=== PATIENT | male | born 1960 | race Caucasian/White ===

== ENCOUNTER 2018-05-24 10:49 | Emergency (ER) | payer BC ==
[2018-05-24 10:55] VITALS: BP 183/72; PULSE 88; RESP 16; TEMP 98.4
--- NOTE | 2018-05-24 11:54 | ED ---
Fall HPI - General Chief Complaint: Fall Stated Complaint: fall, knee/back pain Time Seen by Provider: 05/24/18 11:01 Source: patient Mode of arrival: wheelchair - History of Present Illness Initial Comments: Patient is a 57-year-old male who presents with a chief complaint of right knee pain and lower back pain after a fall yesterday. Patient states that he had a mechanical fall when he slipped on ice yesterday. He states that when he fell his lower leg was angulated laterally and that he heard a pop and immediately felt pain. The patient states that he manually reduced his knee at that time. He denies any head trauma and denies use of blood thinners. Patient states he was able to ambulate after the event though it is painful. He denies fever, chills, bowel or bladder incontinence, numbness or paresthesias, or cool extremities. He denies head trauma or loss of consciousness. Patient has tried taking Motrin for pain and states it is only mildly helping. He has a history of hypertension and denies any medical ALLERGIES - Related Data Allergies Allergy/AdvReac Type Severity Reaction Status Date / Time No Known Allergies Allergy Verified 05/24/18 10:55 Review of Systems ROS Statement: Those systems with pertinent positive or pertinent negative responses have been documented in the HPI. ROS Other: All systems not noted in ROS Statement are negative. Musculoskeletal: Reports: back pain, joint swelling Past Medical History Past Medical History: Hypertension History of Any Multi-Drug Resistant Organisms: None Reported Past Surgical History: Orthopedic Surgery Past Psychological History: No Psychological Hx Reported Smoking Status: Current every day smoker Past Alcohol Use History: Occasional Past Drug Use History: None Reported General Exam Limitations: no limitations General appearance: alert, in no apparent distress Head exam: Present: atraumatic, normocephalic Eye exam: Present: normal appearance, PERRL ENT exam: Present: normal exam Neck exam: Present: normal inspection Respiratory exam: Present: normal lung sounds bilaterally. Absent: respiratory distress, wheezes Cardiovascular Exam: Present: regular rate, normal rhythm GI/Abdominal exam: Present: soft. Absent: distended, tenderness Rectal exam: Present: deferred Extremities exam: Present: tenderness, joint swelling, other (patient has decreased ROM of the right knee. there is swelling and bruising most significant on the medial joint line. there is mild laxity with varus pressure. lockman negative. no signs of compartment syndrome at this time. ). Absent: full ROM Back exam: Present: normal inspection, paraspinal tenderness Neurological exam: Present: alert, oriented X3 Psychiatric exam: Present: normal affect, normal mood Skin exam: Present: warm, dry, intact Course Vital Signs 05/24/18 10:53 Temperature 98.4 F Pulse Rate 88 Respiratory 16 Rate Blood Pressure 183/72 O2 Sat by Pulse 97 Oximetry Medical Decision Making - Medical Decision Making Patient presents with a chief complaint fall yesterday. On initial evaluation, patient is hypertensive but otherwise vital signs are stable. History is concerning for a dislocation of the knee which was manually reduced by the patient. There are no signs of compartment syndrome at present though I am concerned for medial joint line pathology. She'll be evaluated with CT angiography of the right lower extremity to rule out vascular injury given mechanism. He was given Sunman for pain. Patient will ultimately be placed in a knee immobilizer and instructed for Ortho follow up. Laboratory evaluation is unremarkable. Patient's of her computed tomography scan of the lower extremities. No vascular injury was identified. There is a large knee effusion. He was placed in a knee immobilizer and given orthopedic follow-up. Instructed to follow-up in one to 2 days, return to the ED if symptoms worsen or change. Disposition Clinical Impression: Fall, Knee effusion, right Disposition: HOME SELF-CARE Condition: Good Is patient prescribed a controlled substance at d/c from ED?: No Referrals: Bran Harp MD [Primary Care Provider] - 1-2 days Jossue Whittington DO [Medical Doctor] - 1-2 days
--- NOTE | 2018-05-24 13:01 | CT ---
EXAMINATION TYPE: CT angio lower extremity RT DATE OF EXAM: 05/24/2018 12:37 PM COMPARISON: None. HISTORY: Fall, dislocation of Rt knee CT DLP: 1799.5 mGycm Automated exposure control for dose reduction was used. TECHNIQUE: Performed with IV Contrast, patient injected with 100 mL of Isovue 370. FINDINGS: There are mild arthritic changes in both knees. There is a prominent right knee joint effus ion. There is moderate soft tissue swelling and pretibial edema on the right. The aorta, iliac, superficial femoral, popliteal and runoff vessels are patent bilaterally. There is no evidence of a significant hematoma about the knee. There is a bilateral lysis at L5 with a grade 1 spondylolisthesis of L5 on S1. There is degenerative disc disease and hypertrophic spondylosis within the spine no bony fracture is seen. IMPRESSION: 1. NO ACUTE OSSEOUS LESION. 2. PROMINENT KNEE JOINT EFFUSION ON THE RIGHT. 3. NO EVIDENCE OF A SIGNIFICANT VASCULAR INJURY. 4. BILATERAL LYSIS AT L5 WITH A GRADE 1 SPONDYLOLISTHESIS OF L5 ON S1. 5. DEGENERATIVE CHANGES WITHIN THE SPINE.
[2018-05-25 05:37] LABS: Basophils % (A) 1 %; Eosinophils # (A) 0.3 k/uL (0-0.7); Eosinophils % (A) 4 %; HCT 43.6 % (39.0-53.0); HGB 14.4 gm/dL (13.0-17.5); Lymphocytes # (A) 1.3 k/uL (1.0-4.8); Lymphocytes % (A) 19 %; MCH 31.7 pg (25.0-35.0); MCHC 33.1 g/dL (31.0-37.0); MCV 95.8 fL (80.0-100.0); Monocytes # (A) 0.4 k/uL (0-1.0); Monocytes % (A) 7 %; Neutrophils # (A) 4.6 k/uL (1.3-7.7); Neutrophils % (A) 68 %; Platelet Count 185 k/uL (150-450); RBC 4.56 m/uL (4.30-5.90); WBC 6.7 k/uL (3.8-10.6)
[2018-05-25 08:06] LABS: Calcium 8.8 mg/dL (8.4-10.2); Potassium 4.7 mmol/L (3.5-5.1); Total Bilirubin 0.6 mg/dL (0.2-1.3); Total Protein 5.8 g/dL (6.3-8.2)
== END 2018-05-24 15:30 | disposition home or self-care (01) ==
LOC: EC 10:49
DX: M25.461 Effusion, right knee (principal); I10 Essential (primary) hypertension; F17.200 Nicotine dependence, unspecified, uncomplicated; W00.0XXA Fall on same level due to ice and snow, initial encounter
CPT/HCPCS: 36415; 80053; 85025; 73706; 99284; Q9967

== ENCOUNTER → 2018-12-01 | Outpatient (CLI) | payer BC ==
--- NOTE | 2018-12-01 13:10 | CT ---
EXAMINATION TYPE: CT lumbar spine wo con DATE OF EXAM: 12/01/2018 12:40 PM COMPARISON: None. HISTORY: chronic low back pain/radiates down both legs CT DLP: 1427 mGycm Automated exposure control for dose reduction was used. Unenhanced CT of the lumbar spine was performed. Bone and soft tissue window settings are submitted as well as coronal and sagittal reconstructions. There are 5 lumbar type vertebra. Lumbar spine shows satisfactory alignment without acute fracture or dislocation. There is mild disc space narrowing L3-L4 through the L5-S1 levels. Posterior disc herni ations are seen at these levels on sagittal images. There is moderate multilevel anterior and lateral spurring. Axial images show the T12-L1 through the L2-L3 level to appear within normal limits. Axial images at the L3-L4 level demonstrates [id number] broad disc bulge effacing the anterior thecal sac with mild facet degenerative changes bilaterally. There is mild right greater than left bi lateral anterior inferior neural foraminal narrowing. Axial images at the L4-L5 level moderate facet degenerative changes bilaterally with broad disc bulge . Spinal canal is preserved. [id number] left greater than right bilateral neural foraminal narr owing is seen. Axial images at the L5-S1 level show bilateral pars defects without spondylolisthesis. There is mild facet arthropathy bilaterally. There is central disc protrusion axial image 73 but spinal canal is pr eserved. Bilateral neural foramina are patent. No suspicious incidental findings in the visualized retroperitoneum. IMPRESSION: Multilevel degenerative changes in the mid to lower lumbar spine as detailed above.
== END | disposition home or self-care (01) ==
LOC: RADCTMAIN 12:20
PROVIDERS: ATTEND Nurse Practitioner Adult Health
DX: M51.36 Other intervertebral disc degeneration, lumbar region (principal)
CPT/HCPCS: 72131